=== PATIENT | female | born 1995 | race African-American/Black ===

== ENCOUNTER 2017-04-26 03:26 | Emergency (ER) | payer SELFPAY ==
[2017-04-26 03:32] VITALS: BP 156/61; PULSE 78; RESP 18; TEMP 97.5
[2017-04-26] MEDS ORDERED: LORATADINE 10 MG TAB PO STA (03:42)
[2017-04-26] MEDS ORDERED: KETOTIFEN 0.025% OPHTH DROPS 5 ML BTL BOTH EYES STA (03:42)
--- NOTE | 2017-04-26 03:45 | ED ---
General Adult HPI - General Chief complaint: ENT Stated complaint: eye swelling Time Seen by Provider: 04/26/17 03:32 Source: patient, family, RN notes reviewed Mode of arrival: ambulatory Limitations: no limitations - History of Present Illness Initial comments: 21-year-old female presents emergency Department chief complaint of bilateral itchy irritated watering eyes. Patient states she's had this for the last few days. She states that they do crossed when she wakes up she denies any purulent drainage. She does admit to history of seasonal ALLERGIES. Patient states she was concerned due to to the continued itching so she thought that she should be seen. She is not treated him in anyways. He denies any changes in vision or any other complaints with this.Patient denies any recent fever, chills, shortness of breath, chest pain, back pain, abdominal pain, nausea vomiting, numbness or tingling, dysuria or hematuria, constipation or diarrhea, headaches or visual changes, or any other current symptoms. - Related Data Home Medications Medication Instructions Recorded Confirmed Cyclobenzaprine [Flexeril] 10 mg PO HS 04/26/17 04/26/17 Previous Rx's Medication Instructions Recorded Cetirizine HCl [Zyrtec] 5 mg PO DAILY #10 tab 04/26/17 Ketotifen 0.025% Ophth Soln 1 drop BOTH EYES BID 5 Days 04/26/17 [Zaditor] Allergies Allergy/AdvReac Type Severity Reaction Status Date / Time No Known Allergies Allergy Verified 04/26/17 03:32 Review of Systems ROS Statement: Those systems with pertinent positive or pertinent negative responses have been documented in the HPI. ROS Other: All systems not noted in ROS Statement are negative. Past Medical History Past Medical History: No Reported History History of Any Multi-Drug Resistant Organisms: None Reported Past Surgical History: No Surgical Hx Reported Past Psychological History: No Psychological Hx Reported Smoking Status: Current some day smoker Past Alcohol Use History: None Reported Past Drug Use History: None Reported General Exam Limitations: no limitations General appearance: alert, in no apparent distress Head exam: Present: atraumatic, normocephalic, normal inspection Eye exam: Present: normal appearance, PERRL, EOMI, conjunctival injection ( Bilateral), other (Watery discharge). Absent: scleral icterus, periorbital swelling, periorbital tenderness Pupils: Present: normal accommodation ENT exam: Present: normal exam, mucous membranes moist Neck exam: Present: normal inspection. Absent: tenderness, meningismus, lymphadenopathy Respiratory exam: Present: normal lung sounds bilaterally. Absent: respiratory distress, wheezes, rales, rhonchi, stridor Cardiovascular Exam: Present: regular rate, normal rhythm, normal heart sounds. Absent: systolic murmur, diastolic murmur, rubs, gallop, clicks Neurological exam: Present: alert, oriented X3 Psychiatric exam: Present: normal affect, normal mood Skin exam: Present: warm, dry, intact, normal color. Absent: rash Course Vital Signs 04/26/17 03:28 Temperature 97.5 F L Pulse Rate 78 Respiratory 18 Rate Blood Pressure 156/61 O2 Sat by Pulse 100 Oximetry Medical Decision Making - Medical Decision Making 21-year-old female presents with what appears to be an ALLERGIC conjunctivitis. At this time with the patient ALLERGY medication as well as eyedrops. We did discuss return parameters and follow-up and all patient's questions. He stated the Garry they are in agreement plan. At this time they will be discharged home. Disposition Clinical Impression: Allergic conjunctivitis Disposition: HOME SELF-CARE Condition: Stable Instructions: Allergic Rhinitis (ED), Conjunctivitis (ED) Additional Instructions: Please use medication as discussed. Please follow up with family doctor if symptoms have not improved over the next two days. Please return to the emergency room if your symptoms increase or worsen or for any other concerns. Prescriptions: Cetirizine HCl [Zyrtec] 5 mg PO DAILY #10 tab Ketotifen 0.025% Ophth Soln [Zaditor] 1 drop BOTH EYES BID 5 Days Referrals: Sheron Mosley MD [Primary Care Provider] - 1-2 days Time of Disposition: 03:45
== END 2017-04-26 04:08 | disposition home or self-care (01) ==
LOC: EC 03:26
DX: H10.13 Acute atopic conjunctivitis, bilateral (principal); F17.200 Nicotine dependence, unspecified, uncomplicated; Z79.899 Other long term (current) drug therapy
CPT/HCPCS: 99283

== ENCOUNTER → 2019-01-02 | Outpatient (CLI) | payer BC | END | disposition home or self-care (01) | LOC: LABWHC1 15:47 | PROVIDERS: ATTEND Obstetrics & Gynecology | DX: Z34.80 Encounter for supervision of other normal pregnancy, unspecified trimester (principal) | CPT/HCPCS: 36415; 84702 ==

== ENCOUNTER → 2019-01-04 | Outpatient (CLI) | payer BC | END | disposition home or self-care (01) | LOC: LABWHC1 17:06 | PROVIDERS: ATTEND Obstetrics & Gynecology | DX: Z34.80 Encounter for supervision of other normal pregnancy, unspecified trimester (principal) | CPT/HCPCS: 36415; 84702 ==

== ENCOUNTER → 2019-02-01 | Outpatient (CLI) | payer BC ==
[2019-02-01 17:05] LABS: HCT 35.6 % (34.0-46.0); HGB 11.6 gm/dL (11.4-16.0); MCH 30.7 pg (25.0-35.0); MCHC 32.7 g/dL (31.0-37.0); MCV 93.9 fL (80.0-100.0); Mean Platelet Volume 7.6; Platelet Count 212 k/uL (150-450); RBC 3.79 m/uL (3.80-5.40); RDW 12.8 % (11.5-15.5); WBC 7.3 k/uL (3.8-10.6)
[2019-02-01 17:15] LABS: African American GFR (CKD) >90 (>60 ml/min/1.73 sqM); Glucose 94 mg/dL (74-99)
--- NOTE | 2019-02-02 07:28 | US ---
EXAMINATION TYPE: Transabdominal DATE OF EXAM: 02/01/2019 4:40 PM COMPARISON: NONE CLINICAL HISTORY: Z36 CONFIRM DATES. EXAM PERFORMED: Transabdominal (TA) EXAM MEASUREMENTS: GESTATIONAL AGE / DATING Physician Established: NOT ESTABLISHED Dates by LMP: 12/01/2018 ( 8 weeks/6 days) EDC: 09/07/2019 Dates by First Scan: no prior Dates by Current Scan for: (9 weeks/3 days) EDC: 09/03/2019 MATERNAL ANATOMY Uterus: 9.9 x 7.9 x 8.0 cm Right Ovary: 3.2 x 1.5 x 2.6 cm Left Ovary: 2.0 x 1.9 x 2.6 cm Post CDS / Adnexa: wnl Presence of free fluid: wnl Presence of corpus luteal cyst: no Presence of subchorionic bleed: Very small persisting curvilinear region occupying less than 25% of t he gestational sac diameter. GESTATION / SURVEY CRL: 2.2 cm (8 weeks/6 days) MSD: 4.4 cm (9 weeks/6 days) Yolk Sac (normal less than 6mm): 5 Heart Rate: 152 bpm Rhythm: Normal IUP: Live IUP Date of LMP: 12/01/2018 Beta HcG (if available): na IMPRESSION: Single live intrauterine with a calculated sonographic age of 9 weeks and 3 days correspond ing to an estimated date of delivery of 09/03/2019, overall concordant with menstrual age. A very smal l subchorionic hemorrhage is noted.
== END | disposition home or self-care (01) ==
LOC: RADUSWWP 16:22
PROVIDERS: ATTEND Obstetrics & Gynecology
DX: O20.9 Hemorrhage in early pregnancy, unspecified (principal); Z3A.09 9 weeks gestation of pregnancy
CPT/HCPCS: 76801; 82565; 82947; 83021; 85027; 86762; 86780; 86850; 86900; 86901; 87340

== ENCOUNTER 2019-02-09 22:55 | Emergency (ER) | payer BC ==
[2019-02-09] MEDS ORDERED: FAMOTIDINE 20 MG TAB PO STA (23:39)
[2019-02-09] MEDS ORDERED: ACETAMINOPHEN TAB 500 MG TAB PO STA (23:39)
--- NOTE | 2019-02-09 23:50 | ED ---
General Adult HPI - General Chief complaint: Extremity Injury, Upper Stated complaint: 8wks preg,cramps Time Seen by Provider: 02/09/19 23:29 Source: patient, family Mode of arrival: ambulatory Limitations: no limitations - History of Present Illness Initial comments: 23-year-old female patient presented to the emergency department today for evaluation of multiple complaints. Patient states earlier today at work she jammed her right fourth digit. States that she does wear acrylic nails and the nailbed was injured. States that she is having significant pain to the finger. Patient is also reporting increased heartburn and headache since becoming approximately 8 weeks ago. Patient states she has been taking Tums but it is not helping. She denies any nausea or vomiting. States she does take Zofran for morning sickness. States that she has had a stressful day today, has been crying throughout the day, feels tense, and is requesting a check of the fetus. She denies any abdominal pain, abnormal vaginal bleeding, or abnormal discharge. She denies any hematuria, dysuria, urinary frequency, urinary urgency. Patient denies any recent rash, fever, chills, shortness breath, chest pain, diarrhea, constipation, back pain, numbness, tingling, dizziness, weakness, headache, visual changes, or any other complaints. - Related Data Home Medications Medication Instructions Recorded Confirmed Cyclobenzaprine [Flexeril] 10 mg PO HS 04/26/17 04/26/17 Previous Rx's Medication Instructions Recorded Cetirizine HCl [Zyrtec] 5 mg PO DAILY #10 tab 04/26/17 Ketotifen 0.025% Ophth Soln 1 drop BOTH EYES BID 5 Days ml 04/26/17 [Zaditor] Allergies Allergy/AdvReac Type Severity Reaction Status Date / Time No Known Allergies Allergy Verified 02/09/19 23:01 Review of Systems ROS Statement: Those systems with pertinent positive or pertinent negative responses have been documented in the HPI. ROS Other: All systems not noted in ROS Statement are negative. Past Medical History Past Medical History: No Reported History History of Any Multi-Drug Resistant Organisms: None Reported Past Surgical History: No Surgical Hx Reported Past Psychological History: No Psychological Hx Reported Smoking Status: Former smoker Past Alcohol Use History: None Reported Past Drug Use History: None Reported General Exam Limitations: no limitations General appearance: alert, in no apparent distress, other (Physical well- developed, well-nourished adult female patient in no acute distress. Vital signs upon presentation are temperature 98.6F, pulse 75, respirations 20, blood pressure 120/66, pulse ox 97% on room air.) Eye exam: Present: normal appearance, PERRL, EOMI. Absent: scleral icterus, conjunctival injection, periorbital swelling ENT exam: Present: normal exam, normal oropharynx, mucous membranes moist Respiratory exam: Present: normal lung sounds bilaterally. Absent: respiratory distress, wheezes, rales, rhonchi, stridor Cardiovascular Exam: Present: regular rate, normal rhythm, normal heart sounds. Absent: systolic murmur, diastolic murmur, rubs, gallop, clicks GI/Abdominal exam: Present: soft, normal bowel sounds. Absent: distended, tenderness, guarding, rebound, rigid Extremities exam: Present: full ROM, normal capillary refill, other (Patient has tenderness noted to the right fourth nail bed. No active bleeding. There is bony tenderness over the distal phalanx. Skin is otherwise pink, warm, and dry. Cap refills less than 3 seconds. Radial pulses 2+ and equal bilaterally.). Absent: normal inspection, tenderness, pedal edema, joint swelling, calf tenderness Neurological exam: Present: alert, oriented X3, CN II-XII intact Psychiatric exam: Present: normal affect, normal mood Skin exam: Present: warm, dry, intact, normal color. Absent: rash Course Vital Signs 02/09/19 02/10/19 22:56 00:54 Temperature 98.6 F 98 F Pulse Rate 75 74 Respiratory 20 18 Rate Blood Pressure 120/66 100/63 O2 Sat by Pulse 97 100 Oximetry Medical Decision Making - Medical Decision Making 23-year-old female patient presented to the emergency department today for complaints of right fourth digit pain, heartburn, and concerns about her fetus due to increased stress. Physical examination does reveal tenderness to the right distal phalanx, fourth digit right hand. X-ray of the finger was negative for any acute fractures. Patient is eating a salad with ranch dressing during my examination, tolerating intake without difficulty. Did perform ultrasound which did show movement and cardiac activity. No vaginal bleeding or discharge. Discharged home at this time to follow up with her primary care physician for recheck in 1-2 days. Return parameters were discussed in detail patient verbalizes understanding and agrees this plan. - Lab Data Lab Results 02/09/19 Range/Units 23:50 Urine Color Yellow Urine Appearance Clear (Clear) Urine pH 6.5 (5.0-8.0) Ur Specific [place] 1.011 (1.001-1.035) Urine Protein Negative (Negative) Urine Glucose (UA) Negative (Negative) Urine Ketones 1+ H (Negative) Urine Blood Negative (Negative) Urine Nitrite Negative (Negative) Urine Bilirubin Negative (Negative) Urine Urobilinogen <2.0 (<2.0) mg/dL Ur Leukocyte Esterase Negative (Negative) Disposition Clinical Impression: Injury of nail bed of finger of right hand, Heartburn during Disposition: HOME SELF-CARE Condition: Good Instructions (If sedation given, give patient instructions): Indigestion (ED), Nail Avulsion (ED) Additional Instructions: Apply ice to the finger. Take Tylenol for pain control. Take Zantac as directed for heartburn. Increase water in your diet. Follow-up with your [facility] for recheck as soon as possible. Follow-up with your primary care physician for recheck in 1-2 days. Return to the emergency department immediately for any new, worsening, or concerning symptoms. Is patient prescribed a controlled substance at d/c from ED?: No Referrals: Sheron Mosley MD [Primary Care Provider] - 1-2 days Time of Disposition: 00:40
--- NOTE | 2019-02-10 00:09 | XR ---
EXAM: XR Right Finger(s), 2 or More Views CLINICAL HISTORY: ITS.REASON XR Reason: Pain TECHNIQUE: Frontal, lateral and oblique views of finger(s) of the right hand. COMPARISON: No relevant prior studies available. FINDINGS: Bones/joints: Unremarkable. No acute fracture. No dislocation. Soft tissues: Unremarkable. No radiopaque foreign body. IMPRESSION: Normal x-rays of the visualized right fingers.
[2019-02-10 00:13] LABS: Appearance,Urine Clear (Clear); Bilirubin,Urine Negative (Negative); Blood,Urine Negative (Negative); Color,Urine Yellow; Glucose,Urine (UA) Negative (Negative); Ketones,Urine 1+ (Negative); Leukocyte Esterase,Urine Negative (Negative); Nitrite,Urine Negative (Negative); PH, Urine 6.5 (5.0-8.0); Protein,Urine Negative (Negative); Specific Gravity,Urine 1.011 (1.001-1.035); Urobilinogen,Urine <2.0 mg/dL (<2.0)
[2019-02-10 00:56] VITALS: BP 100/63; PULSE 74; RESP 18; TEMP 98
== END 2019-02-10 00:55 | disposition home or self-care (01) ==
LOC: EC 22:55
DX: O9A.219 Injury, poisoning and certain other consequences of external causes complicating pregnancy, unspecified trimester (principal); S69.91XA Unspecified injury of right wrist, hand and finger(s), initial encounter; O99.619 Diseases of the digestive system complicating pregnancy, unspecified trimester; R12 Heartburn; Z3A.00 Weeks of gestation of pregnancy not specified; Z79.899 Other long term (current) drug therapy; Z87.891 Personal history of nicotine dependence; W23.0XXA Caught, crushed, jammed, or pinched between moving objects, initial encounter; Y92.69 Other specified industrial and construction area as the place of occurrence of the external cause; Y99.0 Civilian activity done for income or pay
CPT/HCPCS: 81003; 99284

== ENCOUNTER 2019-07-06 13:44 | Outpatient (CLI) | payer BC ==
[2019-07-06 15:10] LABS: Appearance,Urine Clear (Clear); Bilirubin,Urine Negative (Negative); Blood,Urine Negative (Negative); Color,Urine Yellow; Glucose,Urine (UA) Negative (Negative); Ketones,Urine Negative (Negative); Leukocyte Esterase,Urine Negative (Negative); Nitrite,Urine Negative (Negative); PH, Urine 6.5 (5.0-8.0); Protein,Urine Negative (Negative); Specific Gravity,Urine 1.014 (1.001-1.035); Urobilinogen,Urine <2.0 mg/dL (<2.0)
[2019-07-06 15:22] LABS: Amphetamine Screen,Urine Not Detected (NotDetected); Barbiturate Screen,Urine Not Detected (NotDetected); Benzodiazepines Screen,Urine Not Detected (NotDetected); Cocaine Screen,Urine Not Detected (NotDetected); Methadone Screen, Urine Not Detected (NotDetected); Opiate Screen,Urine Not Detected (NotDetected); Oxycodone Screen, Urine Not Detected (NotDetected); Phencyclidine Screen,Urine Not Detected (NotDetected); Tricyclic Antidepressant,Urine Not Detected (NotDetected); Urn Cannabinoid Scrn Not Detected (NotDetected)
[2019-07-06 16:09] VITALS: BP 105/62; PULSE 75; RESP 16; TEMP 97.8
--- NOTE | 2019-07-06 17:53 | P.MSEPDOC ---
Presenting Problems - Arrival Data Date of Arrival on Unit: 07/06/19 Time of Arrival on Unit: 14:00 Mode of Transport: Ambulatory - Complaint OB-Reason for Admission/Chief Complaint: Other Comment: back pain Medical History - Information : 2 Para: 0 Term: 0 : 0 Abortions: Spontaneous or Elective: 1 Number of Living Children: 0 - Gestational Age Gestational Age by PRANAV (wks/days): 31 Weeks and 0 Days Review of Systems - Review of Systems Constitutional: No problems Breast: No problems ENT: No problems Cardiovascular: No problems Respiratory: No problems Gastrointestinal: No problems Genitourinary: No problems Musculoskeletal: No problems Neurological: No problems Skin: No problems Vital Signs - Temperature Temperature: 97.8 F Temperature Source: Oral - Pulse Sitting Pulse Rate: 75 Pulse Assessment Method: Automatic Cuff - Respirations Respiratory Rate: 16 Oxygen Delivery Method: Room Air - Blood Pressure Sitting Blood Pressure: 105/62 Blood Pressure Mean: 76 Blood Pressure Source: Automatic Cuff Medical Screen Scoring (Pre) - Cervical Exam Dilation: 0 cm = 0 Membranes: Intact - Uterine Contractions Frequency: N/A Duration: N/A Intensity: N/A - Maternal Vital Signs Maternal Temperature: N/A Maternal Blood Pressure: N/A Signs of Preeclampsia: N/A Maternal Respirations: N/A - Maternal Trauma Maternal Trauma: N/A - Assessment - Baby A Baseline FHR: 125 Heart Rate - NICHD Category: Category I (Normal) = 0 NST: Reactive - Total Score - Baby A Total Score - Baby A: 0 - Total Score - Baby B Total Score - Baby B: 0 - Total Score - Baby C Total Score - Baby C: 0 - Level of Risk - Baby A Level of Risk - Baby A: Low (0-5) - Level of Risk - Baby B Level of Risk - Baby B: Low (0-5) - Level of Risk - Baby C Level of Risk - Baby C: Low (0-5) Physician Notification (Pre) - Physician Notified Physician Notified Date: 07/06/19 Physician Notified Time: 15:00 - Notification Comment Comment: PT TO BE DISCHARGED HOME Disposition - Disposition OB Disposition: Discharge to home Discharge Date: 07/06/19 Discharge Time: 15:30 I agree with the RN Medical Screening Exam: Yes Risk & Benefit of care provided described in d/c instruction: Yes Diagnosis: LOW BACK PAIN
== END 2019-07-06 16:10 | disposition home or self-care (01) ==
LOC: FBPOP 13:44
PROVIDERS: ATTEND Obstetrics & Gynecology
DX: O99.89 Other specified diseases and conditions complicating pregnancy, childbirth and the puerperium (principal); M54.5 Low back pain; Z3A.31 31 weeks gestation of pregnancy
CPT/HCPCS: 59025; 80306; 81003; 99213

== ENCOUNTER 2019-08-10 07:58 | Inpatient (IN) | payer BC ==
[2019-08-10] MEDS ORDERED: CARBOPROST TROMETHAMINE 250 MCG/ML 1 ML AMP IM PRN (08:34)
[2019-08-10] MEDS ORDERED: LIDOCAINE 0.5% (PF) 5 MG/ML (50 ML SDV) SQ PRN (08:34)
[2019-08-10] MEDS ORDERED: AMPICILLIN 2,000 MG in SODIUM CHLORIDE 0.9% 100 ML IVPB STA (08:34)
[2019-08-10] MEDS ORDERED: OXYTOCIN 10 UNIT/ML 1 ML VIAL IM PRN (08:34)
[2019-08-10] MEDS ORDERED: METHYLERGONOVINE 0.2 MG/ML 1 ML AMP IM PRN (08:34)
[2019-08-10] MEDS ORDERED: TERBUTALINE 1 MG/ML VIAL SQ PRN (08:34)
[2019-08-10] MEDS ORDERED: LACTATED RINGERS 1,000 ML IV SCH (08:45)
[2019-08-10] MEDS: LACTATED RINGERS 1,000 ML IV SCH ×2 (09:00→09:08)
[2019-08-10 09:03] LABS: Basophils % (A) 0 %; Eosinophils # (A) 0.1 k/uL (0-0.7); Eosinophils % (A) 1 %; HCT 32.7 % (34.0-46.0); HGB 10.8 gm/dL (11.4-16.0); Lymphocytes # (A) 1.3 k/uL (1.0-4.8); Lymphocytes % (A) 15 %; MCH 30.6 pg (25.0-35.0); MCHC 33.1 g/dL (31.0-37.0); MCV 92.5 fL (80.0-100.0); Mean Platelet Volume 8.8; Monocytes # (A) 0.6 k/uL (0-1.0); Monocytes % (A) 7 %; Neutrophils # (A) 6.5 k/uL (1.3-7.7); Neutrophils % (A) 74 %; Platelet Count 190 k/uL (150-450); RBC 3.54 m/uL (3.80-5.40); RDW 12.8 % (11.5-15.5); WBC 8.8 k/uL (3.8-10.6)
[2019-08-10] MEDS ORDERED: ROPIVACAINE 100 MG, fentaNYL (PF) 200 MCG in SODIUM CHLORIDE 0.9% 76 ML EPIDURAL ONE (10:15)
[2019-08-10] MEDS ORDERED: AMPICILLIN 1,000 MG in SODIUM CHLORIDE 0.9% 50 ML IVPB SCH (12:40)
[2019-08-10] MEDS ORDERED: FAMOTIDINE 20 MG/2 ML VIAL IV ONE (12:53)
[2019-08-10] MEDS ORDERED: HYDROcodone/APAP 5-325MG 1 EACH TAB PO PRN (16:58)
[2019-08-10] MEDS ORDERED: HYDROCORTISONE 2.5% RECTAL CREAM 30 GM TUBE RECTAL PRN (16:58)
[2019-08-10] MEDS ORDERED: WITCH HAZEL 1 EACH MED..PAD TOPICAL PRN (16:58)
[2019-08-10] MEDS ORDERED: LANOLIN CREAM 5 GM TUBE TOPICAL PRN (16:58)
[2019-08-10] MEDS ORDERED: ACETAMINOPHEN TAB 325 MG TAB PO PRN (16:58)
[2019-08-10] MEDS ORDERED: diphenhydrAMINE 50 MG/ML 1 ML VIAL IVP PRN ×2 (16:58)
[2019-08-10] MEDS ORDERED: diphenhydrAMINE 25 MG CAP PO PRN (16:58)
[2019-08-10] MEDS ORDERED: diphenhydrAMINE 50 MG CAP PO PRN (16:58)
[2019-08-10] MEDS ORDERED: ZOLPIDEM 5 MG TAB PO PRN (16:58)
[2019-08-10] MEDS ORDERED: BENZOCAINE/MENTHOL SPRAY 1 GM/SPRAY AEROSOL TOPICAL PRN (16:58)
[2019-08-10] MEDS ORDERED: SIMETHICONE 80 MG CHEWABLE PO PRN (16:58)
[2019-08-10] MEDS ORDERED: OXYTOCIN 20 UNITS/1000 ML NS 1,000 ML IV SCH (17:00)
--- NOTE | 2019-08-10 17:07 | P.HPOB ---
History of Present Illness H&P Date: 08/10/19 Chief Complaint: Intrauterine at 36 weeks Patient is a 23-year-old at 36 weeks who arrives with spontaneous rupture membranes . She was raf prior to that she is currently dilated to 3 cm at presentation complaining of contractions every few minutes. Her Precis course was uncomplicated and otherwise she is feeling well. She is planning an epidural for analgesia and all questions were answered for her. A category 1 tracing is noted. Pertinent labs include A+ blood type, Rh antibody was negative, rubella was immune, hepatitis B surface antigen and RPR were negative. Group B strep is unknown Past Medical History Past Medical History: No Reported History History of Any Multi-Drug Resistant Organisms: None Reported Past Surgical History: No Surgical Hx Reported Past Anesthesia/Blood Transfusion Reactions: No Reported Reaction Past Psychological History: No Psychological Hx Reported Smoking Status: Former smoker Past Alcohol Use History: None Reported Past Drug Use History: None Reported - Past Family History Father Family Medical History: Diabetes Mellitus Medications and Allergies Home Medications Medication Instructions Recorded Confirmed Type No Known Home Medications 08/10/19 08/10/19 History Allergies Allergy/AdvReac Type Severity Reaction Status Date / Time No Known Allergies Allergy Verified 08/10/19 08:31 Exam Osteopathic Statement: *. No significant issues noted on an osteopathic structural exam other than those noted in the History and Physical/Consult. Vital Signs Temp Pulse Resp BP 08/10/19 09:07 97.7 F 85 16 121/73 08/10/19 08:16 97.7 F 85 16 121/73 Intake and Output 08/10/19 08/10/19 08/10/19 06:59 14:59 22:59 Intake Total 250 Balance 250 Intake: Oral 250 Other: Weight 68.946 kg - OBG Physical Exam Breast: both: normal (no masses) Abdomen: bowel sounds normal, no diffuse tenderness, no bruit present, no guarding noted, no hepatomegaly, no splenomegaly, no mass Vulva: both: normal Vagina: normal moisture, no discharge Cervix: no lesion, no discharge Uterus: normal size, normal contour Adnexa: both: normal Anus/Rectum: normal perianal skin, no rectal mass, no hemorrhoids, heme negative Results Result Diagrams: 08/10/19 08:45 Abnormal Lab Results - Last 24 Hours (Table) 12/20/19 Range/Units 08:45 RBC 3.54 L (3.80-5.40) m/uL Hgb 10.8 L (11.4-16.0) gm/dL Hct 32.7 L (34.0-46.0) %
--- NOTE | 2019-08-10 17:09 | P.PROBDLV ---
Vaginal Delivery Note - . Vaginal Delivery Note: Patient progressed to complete and pushing with spontaneous vaginal delivery of a viable male over an intact perineum. Baby delivered from essentially OA position but was slightly asynclitic. Significant It is noted. Once baby's head was delivered mouth nares were bulb suctioned and the baby shoulders were delivered from a left and right position without any effort once baby was fully delivered baby was placed on mother's abdomen where the umbilical cord was allowed to pulsate for 30 seconds prior to clamping cutting and then the nursery personnel was present to assume care. Placenta was then delivered intact and Pitocin was added to the IV. Inspection of perineum reveals approximately 2 cm in a point I centimeter small skin separation that was minimally bleeding after discussion with the patient she would defer not to have sutures placed and as it is not bleeding or causing issue should be fine. scores were 9 and 9 at one and 5 minutes respectively and the weight was 6 lbs. 6 oz. Both mother and baby are stable following delivery.
[2019-08-10] MEDS: IBUPROFEN 600 MG TAB PO PRN (17:26)
[2019-08-10] MEDS: SENNOSIDES-DOCUSATE SODIUM 1 EACH TAB PO SCH (19:47)
[2019-08-11] MEDS: IBUPROFEN 600 MG TAB PO PRN ×4 (00:23→23:32)
[2019-08-11 07:24] LABS: Basophils % (A) 0 %; Eosinophils % (A) 0 %; HGB 10.3 gm/dL (11.4-16.0); Lymphocytes # (A) 1.8 k/uL (1.0-4.8); Lymphocytes % (A) 13 %; MCH 30.2 pg (25.0-35.0); MCHC 32.3 g/dL (31.0-37.0); MCV 93.6 fL (80.0-100.0); Mean Platelet Volume 8.9; Monocytes # (A) 0.7 k/uL (0-1.0); Monocytes % (A) 5 %; Neutrophils % (A) 80 %; Platelet Count 170 k/uL (150-450); RBC 3.42 m/uL (3.80-5.40); RDW 12.7 % (11.5-15.5); WBC 13.7 k/uL (3.8-10.6)
[2019-08-11] MEDS: SENNOSIDES-DOCUSATE SODIUM 1 EACH TAB PO SCH ×2 (08:59→20:03)
--- NOTE | 2019-08-11 11:57 | P.PNOBGVD ---
Subjective - Subjective Principal diagnosis: Status post vaginal delivery day #1 Interval history: Patient is doing well. Lochia is decreasing. Pain is fairly well controlled. Patient reports: Reports appetite normal, Reports voiding normally, Reports pain well controlled, Reports ambulating normally [place]: doing well Objective - Latest Vital Signs Latest vital signs: Vital Signs Temp Pulse Resp BP Pulse Ox 08/11/19 03:54 62 12 114/63 98 08/11/19 00:00 98.1 F 76 12 126/75 98 08/10/19 21:50 98.2 F 08/10/19 21:32 97.5 F L 08/10/19 21:00 97.6 F 120 H 50 H 08/10/19 18:55 98.2 F 76 16 126/72 08/10/19 18:25 16 136/75 08/10/19 17:55 98.7 F 78 16 138/62 08/10/19 17:40 98.2 F 88 16 122/58 08/10/19 17:25 78 16 130/90 08/10/19 17:10 86 16 126/80 08/10/19 16:55 98.3 F 90 16 134/80 Intake and Output 08/10/19 08/11/19 08/11/19 22:59 06:59 14:59 Other: # Voids 2 - Exam Extremities: Present: normal. Absent: tenderness, edema Abdomen: Present: normal appearance, soft. Absent: distention Uterus: Present: normal, firm. Absent: tenderness - Labs Labs: Abnormal Lab Results - Last 24 Hours (Table) 08/11/19 Range/Units 06:40 WBC 13.7 H (3.8-10.6) k/uL RBC 3.42 L (3.80-5.40) m/uL Hgb 10.3 L (11.4-16.0) gm/dL Hct 32.0 L (34.0-46.0) % Neutrophils # 11.0 H (1.3-7.7) k/uL Assessment and Plan Assessment: Status post vaginal delivery day #1 Plan: We'll continue care today since baby does need to stay 1 more day. Anticipate discharge home tomorrow. Continue with care.
--- NOTE | 2019-08-12 08:03 | P.DS ---
Providers Date of admission: 08/10/19 08:33 Expected date of discharge: 08/12/19 Attending physician: Brandin Lovelace Primary care physician: Stated None Hospital Course: This is a 23-year-old female 2 para 0 at 36-0/7 weeks who presented to labor and delivery with complaints of rupture of membranes. She delivered vaginally a viable male on 08/10/2019 with a weight of 6 lbs. 6 oz. Her course has been uncomplicated. She is breast-feeding. Lochia is decreasing. Vital signs are stable. Abdomen is soft with fundus firm and nontender. Extremity show negative Homans. Impression is status post vaginal delivery day #2. Plan is to discharge home today. Routine instructions are given. She will be given a prescription for ibuprofen and a prescription for a breast pump. She is advised follow-up Dr. Lovelace in the office in 6 weeks. She is advised to call the office if she has any further questions or concerns prior to her appointment time. Procedures: Spontaneous vaginal delivery of a viable male on 08/10/2019 Patient Condition at Discharge: Stable Plan - Discharge Summary New Discharge Prescriptions: New Ibuprofen [Motrin] 600 mg PO Q6HR PRN #60 tab PRN Reason: Mild Pain Or Fever >= 100.5 Discharge Medication List Ibuprofen [Motrin] 600 mg PO Q6HR PRN #60 tab 08/12/19 [Rx] Follow up Appointment(s)/Referral(s): Brandin Lovelace DO [Doctor of Osteopathic Medicine] - 6 Weeks Activity/Diet/Wound Care/Special Instructions: Instructions 1. Do not begin any exercise program for 3 weeks. 2. Do not resume sexual relations for 3 weeks or longer if uncomfortable. 3. You may take tub baths or showers at any time. 4. You may use tampons if desired after 3 weeks. 5. Keep the area of episiotomy (stitches) clean and dry. 6. If you are not nursing, wear a good fitting, supportive bra during the day and limit fluid intake for at least 1 week to prevent breast engorgement. 7. Call the office, [phone], within the next week to make appointment for your 6 week checkup if it has not already been made. 8. Report any of the following occurrences to the doctor promptly: a. Heavy, excessive bleeding b. Chills, fever c. Burning or frequency of urination d. Pain or redness and breasts if nursing e. Increasing pain or swelling in episiotomy (stitches). In addition to the above instructions, the following additional should be followed: 1. No heavy lifting or straining (exercising) until after 6 week checkup. 2. Keep abdominal incision clean and dry: You may wear a dressing if more comfortable. 3. Make office appointment for 10 days after going home or as instructed by her doctor. Discharge Disposition: HOME SELF-CARE
[2019-08-12 08:57] VITALS: BP 131/78; PULSE 56; RESP 18; TEMP 98.3
[2019-08-12] MEDS: IBUPROFEN 600 MG TAB PO PRN (09:31)
[2019-08-12] MEDS: SENNOSIDES-DOCUSATE SODIUM 1 EACH TAB PO SCH (13:10)
== END 2019-08-12 13:35 | disposition home or self-care (01) | DRG 807 ==
LOC: FBPOP 07:58 → 4FBP 08:33
PROVIDERS: ADMIT Obstetrics & Gynecology; ATTEND Obstetrics & Gynecology
PROC: 00HU33Z Insertion of Infusion Device into Spinal Canal, Percutaneous Approach (ICD-10-PCS; principal; 2019-08-10)
PROC: 10E0XZZ Delivery of Products of Conception, External Approach (ICD-10-PCS; principal; 2019-08-10)
PROC: 3E0R3NZ Introduction of Analgesics, Hypnotics, Sedatives into Spinal Canal, Percutaneous Approach (ICD-10-PCS; principal; 2019-08-10)
DX: O80 Encounter for full-term uncomplicated delivery (principal); Z37.0 Single live birth; Z3A.36 36 weeks gestation of pregnancy; Z83.3 Family history of diabetes mellitus; Z87.891 Personal history of nicotine dependence
CPT/HCPCS: 59025; 84112; 85025; 86850; 86900; 86901; 88307; 99213

== ENCOUNTER 2023-09-13 08:00 | Emergency (ER) | payer BC, OTHER ==
[2023-09-13] MEDS ORDERED: ORPHENADRINE 30 MG/ML 2 ML VIAL IM STA (08:35)
[2023-09-13] MEDS ORDERED: methylPREDNISolone SOD SUCCI 125 MG/2 ML VIAL IM ONE (08:35)
--- NOTE | 2023-09-13 08:37 | ED ---
Extremity Problem HPI - General Chief complaint: Extremity Problem,Nontraumatic Stated complaint: L shoulder pain Time Seen by Provider: 09/13/23 08:19 Source: patient, RN notes reviewed Mode of arrival: ambulatory Limitations: no limitations - History of Present Illness Initial comments: 28-year-old female presents emergency department chief complaint of shoulder pain. Patient states is a recurrent issue. 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 Patient states she has pain in her left shoulder, back region. She denies any chest pain shortness of breath she is right-hand dominant. - Related Data Previous Rx's Medication Instructions Recorded Ibuprofen [Motrin] 600 mg PO Q6HR PRN #60 tab 08/12/19 Cyclobenzaprine [Flexeril] 10 mg PO TID PRN #15 tab 09/13/23 Allergies Allergy/AdvReac Type Severity Reaction Status Date / Time No Known Allergies Allergy Verified 09/13/23 08:18 Review of Systems ROS Statement: Those systems with pertinent positive or pertinent negative responses have been documented in the HPI. ROS Other: All systems not noted in ROS Statement are negative. Past Medical History Past Medical History: No Reported History History of Any Multi-Drug Resistant Organisms: None Reported Past Surgical History: No Surgical Hx Reported Past Anesthesia/Blood Transfusion Reactions: No Reported Reaction Past Psychological History: No Psychological Hx Reported, Anxiety Smoking Status: Vaper Past Alcohol Use History: Occasional Past Drug Use History: Marijuana - Past Family History Father Family Medical History: Diabetes Mellitus General Exam Limitations: no limitations General appearance: alert, in no apparent distress Head exam: Present: atraumatic Eye exam: Present: normal appearance, PERRL, EOMI. Absent: scleral icterus, conjunctival injection, periorbital swelling ENT exam: Present: normal exam, normal oropharynx, mucous membranes moist Neck exam: Present: normal inspection, full ROM. Absent: tenderness, meningis mus, lymphadenopathy Respiratory exam: Present: normal lung sounds bilaterally. Absent: respiratory distress, wheezes, rales, rhonchi, stridor Cardiovascular Exam: Present: regular rate, normal rhythm, normal heart sounds. Absent: systolic murmur, diastolic murmur, rubs, gallop, clicks GI/Abdominal exam: Present: soft, normal bowel sounds. Absent: distended, tenderness, guarding, rebound, rigid Extremities exam: Present: other (Tenderness to the left trapezius region, scapular paraspinal region. Patient has full range of motion neurovascular intact) Course Vital Signs 09/13/23 08:16 Temperature 98 F Pulse Rate 78 Respiratory 18 Rate Blood Pressure 108/70 O2 Sat by Pulse 100 Oximetry Medical Decision Making - Medical Decision Making Was pt. sent in by a medical professional or institution ([facility]oldsmith, [employer], urgent care, hospital, or penitentiary...) When possible be specific @ -No Did you speak to anyone other than the patient for history (EMS, parent, family, police, friend...)? What history was obtained from this source @ -No Did you review nursing and triage notes (agree or disagree)? Why? @ -I reviewed and agree with nursing and triage notes Were old charts reviewed (outside hosp., previous admission, EMS record, old EKG, old radiological studies, urgent care reports/EKG's, penitentiary records)? Report findings @ -No old charts were reviewed Differential Diagnosis (chest pain, altered mental status, abdominal pain women, abdominal pain men, vaginal bleeding, weakness, fever, dyspnea, syncope, headache, dizziness, GI bleed, back pain, seizure, CVA, palpatations, mental health, musculoskeletal)? @ -Shoulder spasms, trapezius strain EKG interpreted by me (3pts min.). @ -None X-rays interpreted by me (1pt min.). @ -None done CT interpreted by me (1pt min.). @ -None done U/S interpreted by me (1pt. min.). @ -None done What testing was considered but not performed or refused? (CT, X-rays, U/S, labs)? Why? @ -None What meds were considered but not given or refused? Why? @ -None Did you discuss the management of the patient with other professionals (professionals i.e. [facility] Goldsmith, [employer], lab, RT, psych nurse, social insurance adviser, contracting specialist, teacher, operational intelligence officer, senior case manager)? Give summary @ -No Was smoking cessation discussed for >3mins.? @ -No Was critical care preformed (if so, how long)? @ -No Were there social determinants of health that impacted care today? How? (Homelessness, low income, unemployed, alcoholism, drug addiction, transportation, low edu. Level, literacy, decrease access to med. care, correction, rehab)? @ -No Was there de-escalation of care discussed even if they declined (Discuss DNR or withdrawal of care, Hospice)? DNR status @ -No What co-morbidities impacted this encounter? (DM, HTN, Smoking, COPD, CAD, Cancer, CVA, ARF, Chemo, Hep., AIDS, mental health diagnosis, sleep apnea, morbid obesity)? @ -None Was patient admitted / discharged? Hospital course, mention meds given and route, prescriptions, significant lab abnormalities, going to OR and other pertinent info. 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 She is advised to follow-up with orthopedics for physical therapy return brands discussed. Undiagnosed new problem with uncertain prognosis? @ -No Drug Therapy requiring intensive monitoring for toxicity (Heparin, Nitro, Insulin, Cardizem)? @ -No Were any procedures done? @ -No Diagnosis/symptom? @ -Trapezius spasms, shoulder pain Acute, or Chronic, or Acute on Chronic? @ -Acute Uncomplicated (without systemic symptoms) or Complicated (systemic symptoms)? @ -Uncomplicated Side effects of treatment? @ -No Exacerbation, Progression, or Severe Exacerbation? @ -No Poses a threat to life or bodily function? How? (Chest pain, [place], [place], pneumonia, PE, COPD, DKA, ARF, appy, cholecystitis, CVA, Diverticulitis, Homicidal, Suicidal, threat to staff... and all critical care pts) @ -No Disposition Clinical Impression: Trapezius muscle spasm Disposition: HOME SELF-CARE Condition: Stable Instructions (If sedation given, give patient instructions): Muscle Spasm (ED) Additional Instructions: Please return to the Emergency Department if symptoms worsen or any other concerns. Prescriptions: Cyclobenzaprine [Flexeril] 10 mg PO TID PRN #15 tab PRN Reason: Muscle Spasm Is patient prescribed a controlled substance at d/c from ED?: No Referrals: None,Stated [Primary Care Provider] - 1-2 days Mohan Oakley MD [STAFF PHYSICIAN] - 1-2 days Time of Disposition: 08:36
[2023-09-13 08:41] VITALS: BP 108/70; PULSE 78; RESP 18; TEMP 98
== END 2023-09-13 08:51 | disposition home or self-care (01) ==
LOC: EC 08:00
DX: M62.838 Other muscle spasm (principal); F17.290 Nicotine dependence, other tobacco product, uncomplicated; F12.90 Cannabis use, unspecified, uncomplicated
CPT/HCPCS: 99283; 96372 ×2; J2360; J2930